=== PATIENT | female | born 1985 | race Caucasian/White ===

== ENCOUNTER 2016-10-11 00:48 | Emergency (ER) | payer MEDICAID ==
[2016-10-11] MEDS: PROMETHAZINE HCL 25 MG/ML VIAL IVP ONE (01:13)
[2016-10-11] MEDS: 0.9 % SODIUM CHLORIDE 1000ML 1,000 ML IV SCH (01:13)
--- NOTE | 2016-10-11 01:13 | Emergency Department Record ---
History of Present Illness - General Chief complaint: Nausea, Vomiting, Diarrhea Stated complaint: VOMITING Time Seen by Provider: 10/11/16 01:08 Source: Patient Mode of Arrival: Ambulatory Limitations: No limitations - History of Present Illness Initial comments: 31 yo female presents to ED with a CC of nausea, vomiting, and loose stools for the past 5 hours. Patient reports chills, denies fevers or abdominal pain symptoms. Patient denies recent ill contacts. 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 MD complaint: Nausea, Vomiting Onset/Timin -: Hour(s) Description of Vomiting: Other Description of Diarrhea: Other Associated Abdominal Pain: No Radiation: None Severity: Mild Quality: Aching Consistency: Constant Improves with: None Worsens with: None Context: Other Associated Symptoms: Malaise, Nausea/vomiting - Related Data Home Medications Medication Instructions Recorded Confirmed Last Taken Alprazolam [Alprazolam] 0.5 mg PO ASDIR 10/11/16 10/11/16 Unknown Cholecalciferol (Vitamin D3) 2,000 unit PO DAILY 10/11/16 10/11/16 Unknown [Vitamin D3] Ferrous Sulfate [Iron] 325 mg PO DAILY 10/11/16 10/11/16 Unknown Ibuprofen [Motrin] 800 mg PO Q8H 10/11/16 10/11/16 Unknown Previous Rx's Medication Instructions Recorded Ondansetron [Zofran Odt] 4 mg PO 10 PRN #10 tab.rapdis 10/11/16 Allergies Allergy/AdvReac Type Severity Reaction Status Date / Time vancomycin AdvReac HIVES Unverified 08/28/16 18:07 Travel Screening - Travel/Exposure Within Last 30 Days Have you traveled within the last 30 days?: No - Travel/Exposure Within Last Year Have you traveled outside the [place] in the last year?: No - Additonal Travel Details Have you been exposed to anyone with a communicable illness?: No - Travel Symptoms Symptom Screening: None Review of Systems Constitutional: Reports: Chills. Denies: Fever, Malaise Eyes: Denies: Eye discharge, Eye pain ENT: Denies: Congestion, Ear pain, Epistaxis Respiratory: Denies: Cough, Dyspnea Cardiovascular: Denies: Chest pain, Dyspnea on exertion Endocrine: Denies: Fatigue, Heat or cold intolerance Gastrointestinal: Reports: Diarrhea, Nausea, Vomiting. Denies: Abdominal pain Genitourinary: Denies: Dysuria, Frequency, Hematuria, Incontinence Musculoskeletal: Denies: Arthralgia, Back pain, Gout, Joint swelling Skin: Denies: Bruising, Change in color Neurological: Denies: Abnormal gait, Confusion, Headache, Tingling Psychiatric: Denies: Anxiety Hematological/Lymphatic: Denies: Anemia, Blood Clots Past Medical History - SOCIAL HISTORY Smoking Status: Current every day smoker Alcohol Use: None Drug Use: None - RESPIRATORY Hx Respiratory Disorders: Yes Hx Asthma: Yes - CARDIOVASCULAR Hx Cardio Disorders: No - NEURO Hx Neuro Disorders: Yes Hx Brain Tumor: Yes Comment:: brain tumor - GI Hx GI Disorders: Yes Hx Irritable Bowel: Yes Hx Liver Disease: Yes (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 (lesions)) - Hx Genitourinary Disorders: No - ENDOCRINE Hx Endocrine Disorders: Yes Hx Thyroid Disease: Yes Comment:: Graves Disease - MUSCULOSKELETAL Hx Arthritis: Yes (rheumatoid) - PSYCH Hx Psych Problems: Yes Hx Anxiety: Yes - HEMATOLOGY/ONCOLOGY Hx Hematology/Oncology Disorders: No Family Medical History Any Significant Family History?: Yes Hx Cancer: Mother, Grandparents Hx Diabetes: Father Hx HTN: Mother Hx Liver Disease: Father, Mother *Liver Comment: Hep C Physical Exam - General General Appearance: Alert, Oriented x3, Cooperative, Anxious Limitations: No limitations - Head Head exam: Atraumatic, Normocephalic, Normal inspection Head exam detail: negative: Abrasion, Contusion, Gonzalez's sign, General tenderness, Hematoma, Laceration - Eye Eye exam: Normal appearance. negative: Conjunctival injection, Periorbital swelling, Periorbital tenderness, Scleral icterus - ENT Ear exam: negative: Auricular hematoma, Auricular trauma Nasal Exam: negative: Active bleeding, Discharge, Dried blood, Foreign body Mouth exam: negative: Drooling, Laceration, Muffled voice, Tongue elevation - Neck Neck exam: Normal inspection. negative: Meningismus, Tenderness - Respiratory Respiratory exam: Normal lung sounds bilaterally. negative: Rhonchi, Stridor, Wheezes - Cardiovascular Cardiovascular Exam: Regular rate, Normal rhythm, Normal heart sounds - GI/Abdominal GI/Abdominal exam: Soft. negative: Rebound, Rigid, Tenderness - Rectal Rectal exam: Deferred - exam: Deferred - Extremities Extremities exam: Normal inspection. negative: Pedal edema, Tenderness - Back Back exam: Denies: CVA tenderness (R), CVA tenderness (L) - Neurological Neurological exam: Alert, Normal gait, Oriented X3 - Psychiatric Psychiatric exam: Anxious - Skin Skin exam: Normal color. negative: Abrasion Type of lesion: negative: abrasion Course Vital Signs 10/11/16 00:59 Temperature 99.2 F Pulse Rate 113 H Respiratory 28 H Rate Blood Pressure 126/83 Pulse Ox 98 - Reevaluation(s) Reevaluation #1: 10/11/16 01:40 Labs reviewed, WBC 10.0, 86% Neutrophils, 6% Bands. Labs are otherwise grossly unremarkable for an acute process. Findings appear c/w acute phase reactant process. Reevaluation #2: 10/11/16 02:14 Patient reassessed and reports that she is feeling better. UA pending. Will continue to observe. Reevaluation #3: 10/11/16 02:40 UA has resulted and appears negative for infection. Patient reports that she has Zofran at home, and appears stable for discharge at this time. Medical Decision Making - Lab Data Result diagrams: 10/11/16 01:21 10/11/16 01:20 Disposition Disposition: Discharge Clinical Impression: Nausea & vomiting Qualifiers: Vomiting type: unspecified Vomiting Intractability: non-intractable Qualified Code(s): R11.2 - Nausea with vomiting, unspecified Disposition: Home, Self-Care Condition: (2) Stable Instructions: Acute Nausea and Vomiting (ED) Additional Instructions: Return to ED if your symptoms worsen or if you have any concerns. Follow-up with your family doctor in 1-3 days as directed. Zofran as previously prescribed. Prescriptions: Ondansetron [Zofran Odt] 4 mg PO 10 PRN #10 tab.rapdis PRN Reason: Nausea/Vomiting Forms: Patient Portal Access Time of Disposition: 02:46
[2016-10-11 01:21] LABS: BASO % 0.1 % (0-6); EOS % 0.3 % (0-6); HEMATOCRIT 38.5 % (35.0-47.0); HEMOGLOBIN 13.6 gm/dl (11.6-16.0); LYMPH % 5.9 % (16-45); MEAN CELL VOLUME 84.8 fl (81-97); MEAN CORPUSCULAR HGB CONC 35.3 g/dl (32-36); MEAN PLATELET VOLUME 10.8 fl (7.4-10.4); MONO % 3.4 % (0-9); PLATELET COUNT 255 K/uL (130-400); RED BLOOD COUNT 4.54 M/uL (3.80-5.40); RED CELL DISTRIBUTION WIDTH 12.8 % (11.5-14.5)
[2016-10-11 01:35] LABS: ALB/GLOB RATIO 1.9 (1.1-1.8); ALKALINE PHOSPHATASE 69 U/L (38-126); ALT/SGPT 41 U/L (9-52); AST/SGOT 27 U/L (14-36); CREATININE 0.7 mg/dL (0.52-1.04); EST GLOMERULAR FILTRATION RATE > 60 ml/min; GLUCOSE,RANDOM 136 mg/dL (70-110); LIPASE 100 U/L (23-300); TOTAL PROTEIN 7.7 gm/dL (6.3-8.2)
[2016-10-11 02:00] LABS: BLOOD UREA NITROGEN 14 mg/dL (7-17)
[2016-10-11 02:15] LABS: URINE APPEARANCE CLEAR; URINE BILIRUBIN NEGATIVE (NEGATIVE); URINE BLOOD NEGATIVE (NEGATIVE); URINE COLOR YELLOW; URINE GLUCOSE (UA) NEGATIVE (NEGATIVE); URINE KETONE NEGATIVE (NEGATIVE); URINE LEUKOCYTE ESTERASE NEGATIVE (NEGATIVE); URINE NITRITE NEGATIVE (NEGATIVE); URINE PROTEIN NEGATIVE (NEGATIVE); URINE UROBILINOGEN 0.2 E.U./dL (0.20 - 1.00)
[2016-10-11 02:17] LABS: HCG,QUALITATIVE URINE NEGATIVE (NEGATIVE)
[2016-10-11] MEDS: KETOROLAC 30 MG/ML VIAL IVP ONE (02:43)
[2016-10-11] MEDS: ONDANSETRON 4 MG ODT TABLET SL ONE (02:49)
== END 2016-10-11 03:01 | disposition home or self-care (01) ==
LOC: ER 00:48
DX: R11.2 Nausea with vomiting, unspecified (principal); R19.7 Diarrhea, unspecified
CPT/HCPCS: 80053; 81003; 81025; 83690; 85027; 96361; 96374; 99284; J2550; J7030

== ENCOUNTER 2018-07-05 13:46 | Emergency (ER) | payer MEDICAID | END 2018-07-05 13:48 | disposition left against medical advice (07) | LOC: ER 13:46 | DX: Z53.20 Procedure and treatment not carried out because of patient's decision for unspecified reasons (principal) ==

== ENCOUNTER 2019-01-02 01:04 | Emergency (ER) | payer MEDICAID ==
[2019-01-02] MEDS ORDERED: MAGNESIUM HYDROXIDE/AL HYDROX 30 ML, LIDOCAINE VISC 2% 15ML 15 ML PO ONE ×2 (01:09)
--- NOTE | 2019-01-02 01:15 | Emergency Department Record ---
History of Present Illness - General Chief Complaint: Abdominal Pain Stated Complaint: STOMACH PAIN Time Seen by Provider: 01/02/19 01:09 Source: Patient Mode of Arrival: Ambulatory Limitations: No limitations - History of Present Illness Initial Comments: 33 yo female presents to ED for evaluation of epigastric abdominal pain that radiates to her mid-back. Patient denies nausea/vomiting, reports that her pain symptoms did not resolve with Tums this evening. Patient denies health problems at her baseline, does report previous cholecystectomy, hysterectomy, and x 3. MD Complaint: Abdominal pain -: Hour(s) Location: Epigastric Radiation: Back Severity: Moderate Quality: Aching Consistency: Constant Improves With: Nothing Worsens With: Nothing Associated Symptoms: Denies other symptoms - Related Data Home Medications Medication Instructions Recorded Confirmed Last Taken Polyethylene Glycol 3350 [Miralax] 1 packet PO DAILY 01/02/19 01/02/19 01/01/19 Previous Rx's Medication Instructions Recorded Ondansetron [Zofran Odt] 4 mg PO 10 PRN #10 tab.rapdis 10/11/16 Allergies Allergy/AdvReac Type Severity Reaction Status Date / Time vancomycin AdvReac HIVES Verified 01/02/19 01:05 Review of Systems Constitutional: Denies: Chills, Fever, Malaise, Night sweats Eyes: Denies: Eye discharge, Eye pain ENT: Denies: Congestion, Ear pain, Epistaxis Respiratory: Denies: Cough, Dyspnea Cardiovascular: Denies: Chest pain, Dyspnea on exertion Endocrine: Denies: Fatigue, Heat or cold intolerance Gastrointestinal: Reports: Abdominal pain. Denies: Constipation, Nausea, Vomiting Genitourinary: Denies: Incontinence, Retention Musculoskeletal: Reports: Back pain. Denies: Arthralgia Skin: Denies: Bruising, Change in color Neurological: Denies: Abnormal gait, Confusion, Headache, Seizure Psychiatric: Denies: Anxiety Hematological/Lymphatic: Denies: Anemia, Blood Clots Past Medical History - SOCIAL HISTORY Smoking Status: Current every day smoker Drug Use: None - RESPIRATORY Hx Respiratory Disorders: Yes Hx Asthma: Yes - CARDIOVASCULAR Hx Cardio Disorders: No - NEURO Hx Neuro Disorders: Yes Hx Brain Tumor: Yes Comment:: brain tumor - GI Hx GI Disorders: Yes Hx Irritable Bowel: Yes Hx Liver Disease: Yes (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 (lesions)) - Hx Genitourinary Disorders: No - ENDOCRINE Hx Endocrine Disorders: Yes Hx Thyroid Disease: Yes Comment:: Graves Disease - MUSCULOSKELETAL Hx Arthritis: Yes (rheumatoid) - PSYCH Hx Psych Problems: Yes Hx Anxiety: Yes - HEMATOLOGY/ONCOLOGY Hx Hematology/Oncology Disorders: No Family Medical History Hx Cancer: Mother, Grandparents Hx Diabetes: Father Hx HTN: Mother Hx Liver Disease: Father, Mother *Liver Comment: Hep C Physical Exam - General General Appearance: Alert, Oriented x3, Cooperative, No acute distress, Other ( Patient is well appearing on examination, no distress noted) Limitations: No limitations - Head Head exam: Atraumatic, Normocephalic, Normal inspection Head exam detail: negative: Abrasion, Contusion, Gonzalez's sign, General tenderness, Hematoma, Laceration - Eye Eye exam: Normal appearance. negative: Conjunctival injection, Periorbital swelling, Periorbital tenderness, Scleral icterus - ENT Ear exam: negative: Auricular hematoma, Auricular trauma Nasal Exam: negative: Active bleeding, Discharge, Dried blood, Foreign body Mouth exam: negative: Drooling, Laceration, Muffled voice, Tongue elevation - Neck Neck exam: Normal inspection. negative: Meningismus, Tenderness - Respiratory Respiratory exam: Normal lung sounds bilaterally. negative: Rales, Respiratory distress, Rhonchi, Stridor - Cardiovascular Cardiovascular Exam: Regular rate, Normal rhythm, Normal heart sounds - GI/Abdominal GI/Abdominal exam: Soft, Tenderness (Mild TTP to the epigastric region on examination, no rebound, guarding, or peritoneal signs on examination.). negative: Rebound, Rigid - Rectal Rectal exam: Deferred - exam: Deferred - Extremities Extremities exam: Normal inspection. negative: Pedal edema, Tenderness - Back Back exam: Denies: CVA tenderness (R), CVA tenderness (L) - Neurological Neurological exam: Alert, Normal gait, Oriented X3 - Psychiatric Psychiatric exam: Normal affect, Normal mood - Skin Skin exam: Normal color. negative: Abrasion Type of lesion: negative: abrasion Course - Reevaluation(s) Reevaluation #1: 01/02/19 01:44 Laboratory studies were reviewed and are grossly unremarkable for an acute process. Patient reports that she is feeling better, repeat abdominal examination is benign, and the patient is resting comfortably on her mobile phone. Patient appears stable for discharge at this time. Medical Decision Making - Lab Data Result diagrams: 01/02/19 01:10 01/02/19 01:10 Disposition Disposition: Discharge Clinical Impression: Epigastric abdominal pain Disposition: Home, Self-Care Condition: (2) Stable Instructions: Abdominal Pain (ED) Additional Instructions: Return to ED if your symptoms worsen or if you have any concerns. Follow-up with your family doctor in 3-5 days as directed. Forms: Patient Portal Access Time of Disposition: 01:45 Quality - Quality Measures Quality Measures: N/A - Blood Pressure Screening Does Patient Have Any of the Following: No Blood Pressure Classification: Hypertensive Reading Systolic Measurement: 128 Diastolic Measurement: 99 Screening for High Blood Pressure: < First Hypertensive BP, F/U Documented > [ G8950] First Hypertensive Follow-up Interventions: Referral to alternative/primary care provider.
[2019-01-02 01:22] LABS: BASO % 0.2 % (0-6); EOS % 1.3 % (0-6); HEMATOCRIT 35.4 % (35.0-47.0); HEMOGLOBIN 11.4 gm/dl (11.6-16.0); LYMPH % 24.5 % (16-45); MEAN CELL VOLUME 79.4 fl (81-97); MEAN CORPUSCULAR HGB CONC 32.2 g/dl (32-36); MEAN PLATELET VOLUME 9.7 fl (7.4-10.4); PLATELET COUNT 377 K/uL (130-400); RED BLOOD COUNT 4.46 M/uL (3.80-5.40); RED CELL DISTRIBUTION WIDTH 16.2 % (11.5-14.5); WHITE BLOOD COUNT W/O DIFF 8.6 K/uL (4.2-12.2)
[2019-01-02 01:24] LABS: MEAN CORPUSCULAR HEMOGLOBIN 25.5 pg (27-33)
[2019-01-02 01:31] LABS: BLOOD UREA NITROGEN 13 mg/dL (6-20); CREATININE 0.7 mg/dL (0.5-0.9); EST GLOMERULAR FILTRATION RATE > 60 mL/min
[2019-01-02 01:32] LABS: LIPASE 28 U/L (13-60); TOTAL PROTEIN 7.5 g/dL (6.6-8.7)
[2019-01-02 01:34] LABS: GLUCOSE,RANDOM 111 mg/dL (74-109)
[2019-01-02 01:36] LABS: ALT/SGPT 19 U/L (<33); URINE APPEARANCE CLEAR; URINE BILIRUBIN NEGATIVE (NEGATIVE); URINE BLOOD TRACE-I (NEGATIVE); URINE COLOR YELLOW; URINE GLUCOSE (UA) NEGATIVE (NEGATIVE); URINE KETONE NEGATIVE (NEGATIVE); URINE LEUKOCYTE ESTERASE TRACE (NEGATIVE); URINE NITRITE NEGATIVE (NEGATIVE); URINE PROTEIN NEGATIVE (NEGATIVE); URINE UROBILINOGEN 0.2 E.U./dL (0.20 - 1.00)
[2019-01-02 01:37] LABS: ALB/GLOB RATIO 1.3 (1.1-1.8); ALBUMIN 4.3 g/dL (4.0-5.0); ALKALINE PHOSPHATASE 67 U/L (35-104); AST/SGOT 15 U/L (10.0-35.0)
[2019-01-02 01:42] LABS: URINE EPITHELIAL CELLS 0 - 2 (FEW); URINE RBC 0 - 2 (NONE SEEN); URINE WBC 0 - 2 (0-2/hpf)
[2019-01-02 01:43] LABS: URINE BACTERIA FEW
== END 2019-01-02 02:00 | disposition home or self-care (01) ==
LOC: ER 01:04
DX: R10.13 Epigastric pain (principal); F17.210 Nicotine dependence, cigarettes, uncomplicated
CPT/HCPCS: 80053; 81001; 83690; 85025; 99283; 99284

== ENCOUNTER 2019-04-22 19:23 | Emergency (ER) | payer MEDICAID ==
--- NOTE | 2019-04-22 19:47 | Emergency Department Record ---
History of Present Illness - General Chief Complaint: Neck Injury/Pain Stated Complaint: NECK PAIN Time Seen by Provider: 04/22/19 19:24 Source: Patient Mode of Arrival: Ambulatory Limitations: No limitations - History of Present Illness Initial Comments: 33 yo female with a past medical history significant for psoriatic arthritis and fibromyalgia presents to ED for evaluation of right-sided neck pain symptoms for the past 2 weeks, reports pain worsened following chiropractic treatment yesterday. Patient did see her pecan picker 2 weeks ago for her symptoms, was prescribed Leflunomide but has not taken any for her pain symptoms due to a gastric emptying test performed yesterday. Patient has also been taking Aleve for her pain symptoms. Patient denies numbness, tingling, or upper extremity weakness symptoms. MD Complaint: Neck pain Onset/Timin -: Week(s) Place: Home Severity: Moderate Quality: Aching Consistency: Constant Improves With: None Worsens With: None Context: Direct blow Associated Symptoms: None Treatments Prior to Arrival: None - Related Data Previous Rx's Medication Instructions Recorded Ondansetron [Zofran Odt] 4 mg PO 10 PRN #10 tab.rapdis 10/11/16 Prednisone [Prednisone 20Mg] 20 mg PO TID #12 tab 04/22/19 Allergies Allergy/AdvReac Type Severity Reaction Status Date / Time vancomycin AdvReac HIVES Unverified 02/02/19 10:49 Review of Systems Constitutional: Denies: Chills, Fever, Malaise, Night sweats Eyes: Denies: Eye discharge, Eye pain ENT: Denies: Congestion, Ear pain, Epistaxis Respiratory: Denies: Cough, Dyspnea Cardiovascular: Denies: Chest pain, Dyspnea on exertion Endocrine: Denies: Fatigue, Heat or cold intolerance Gastrointestinal: Denies: Abdominal pain, Nausea, Vomiting Genitourinary: Denies: Incontinence, Retention Musculoskeletal: Reports: Neck pain. Denies: Arthralgia, Back pain, Gout, Joint swelling Skin: Denies: Bruising, Change in color Neurological: Denies: Abnormal gait, Confusion, Headache, Seizure Psychiatric: Denies: Anxiety Hematological/Lymphatic: Denies: Anemia, Blood Clots Past Medical History - SOCIAL HISTORY Smoking Status: Current every day smoker - RESPIRATORY Hx Respiratory Disorders: Yes Hx Asthma: Yes - CARDIOVASCULAR Hx Cardio Disorders: No - NEURO Hx Neuro Disorders: Yes Hx Brain Tumor: Yes - GI Hx GI Disorders: Yes Hx Irritable Bowel: Yes Hx Liver Disease: Yes (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 (lesions)) - Hx Genitourinary Disorders: No - ENDOCRINE Hx Endocrine Disorders: Yes Hx Thyroid Disease: Yes Comment:: Graves Disease - MUSCULOSKELETAL Hx Arthritis: Yes (rheumatoid) - PSYCH Hx Psych Problems: Yes Hx Anxiety: Yes - HEMATOLOGY/ONCOLOGY Hx Hematology/Oncology Disorders: No Family Medical History Any Significant Family History?: Yes Hx Cancer: Mother, Grandparents Hx Diabetes: Father Hx HTN: Mother Hx Liver Disease: Father, Mother *Liver Comment: Hep C Physical Exam - General General Appearance: Alert, Oriented x3, Cooperative, Mild distress Limitations: No limitations - Head Head exam: Atraumatic, Normocephalic, Normal inspection Head exam detail: negative: Abrasion, Contusion, Gonzalez's sign, General tenderne ss, Hematoma, Laceration - Eye Eye exam: Normal appearance. negative: Conjunctival injection, Periorbital swelling, Periorbital tenderness, Scleral icterus - ENT Ear exam: negative: Auricular hematoma, Auricular trauma Nasal Exam: negative: Active bleeding, Discharge, Dried blood, Foreign body Mouth exam: negative: Drooling, Laceration, Muffled voice, Tongue elevation - Neck Neck exam: Tenderness (TTP along the right para-cervical muscles on examination, no evidence for midline tenderness or infection on examination.). negative: Meningismus - Respiratory Respiratory exam: Normal lung sounds bilaterally. negative: Rales, Respiratory distress, Rhonchi, Stridor - Cardiovascular Cardiovascular Exam: Regular rate, Normal rhythm, Normal heart sounds - GI/Abdominal GI/Abdominal exam: Soft. negative: Rebound, Rigid, Tenderness - Rectal Rectal exam: Deferred - exam: Deferred - Extremities Extremities exam: Normal inspection. negative: Pedal edema, Tenderness - Back Back exam: Denies: CVA tenderness (R), CVA tenderness (L) - Neurological Neurological exam: Alert, Normal gait, Oriented X3 - Psychiatric Psychiatric exam: Normal affect, Normal mood - Skin Skin exam: Normal color. negative: Abrasion Type of lesion: negative: abrasion Course Vital Signs 04/22/19 19:31 Temperature 98.1 F Pulse Rate [ 72 Pulse Ox Probe] Respiratory 20 Rate Blood Pressure 138/92 [Left Arm] Pulse Ox 98 - Reevaluation(s) Reevaluation #1: 04/22/19 20:04 History and examination appear c/w myofascial strain. Will treat with Depo-medrol per patient request for her inflammatory sympotms. Will continue prednisone for 5 days as an outpatient with instructions to follow-up with her PCP or pecan picker as directed. Disposition Disposition: Discharge Clinical Impression: Neck muscle strain Qualifiers: Encounter type: initial encounter Qualified Code(s): S16.1XXA - Strain of muscle, fascia and tendon at neck level, initial encounter Disposition: Home, Self-Care Condition: (2) Stable Instructions: Cervical Sprain (ED) Additional Instructions: Return to ED if your symptoms worsen or if you have any concerns. Prednisone as directed. Follow-up with your family doctor in 3-5 days as directed. Prescriptions: Prednisone [Prednisone 20Mg] 20 mg PO TID #12 tab Forms: Patient Portal Access Time of Disposition: 19:47 Quality - Quality Measures Quality Measures: N/A - Blood Pressure Screening Does Patient Have Any of the Following: No Blood Pressure Classification: Hypertensive Reading Systolic Measurement: 138 Diastolic Measurement: 92 Screening for High Blood Pressure: < First Hypertensive BP, F/U Documented > [G8950] First Hypertensive Follow-up Interventions: Referral to alternative/primary care provider.
[2019-04-22] MEDS: METHYLPREDNISOLONE PF 125MG/VIAL IM ONE ×2 (19:53→20:06)
[2019-04-22] MEDS ORDERED: METHYLPREDNISOLONE 80MG/VIAL IM ONE (19:58)
== END 2019-04-22 20:18 | disposition home or self-care (01) ==
LOC: ER 19:23
DX: S16.1XXA Strain of muscle, fascia and tendon at neck level, initial encounter (principal); X58.XXXA Exposure to other specified factors, initial encounter; F17.210 Nicotine dependence, cigarettes, uncomplicated; Y92.009 Unspecified place in unspecified non-institutional (private) residence as the place of occurrence of the external cause
CPT/HCPCS: 96372; 99283; J1040; J2930

== ENCOUNTER 2019-10-05 21:21 | Emergency (ER) | payer MEDICAID ==
--- NOTE | 2019-10-05 22:38 | Emergency Department Record ---
History of Present Illness - General Chief complaint: Flu Like Symptoms Stated complaint: POS FLU B NO BETTER 10 DAYS Time Seen by Provider: 10/05/19 22:33 Source: Patient Mode of Arrival: Ambulatory Limitations: No limitations - History of Present Illness Initial comments: 34 yo female presents to ED for evaluation of "flu-like symptoms" for 10 days, w as diagnosed with influenza B 3 days ago. Patient has bee taking Tylenol for her symptoms, reports that she is concerned that she is not getting noticeably better after 10 days of symptoms. Patient reports sore throat, non-productive cough, body aches, and use of her inhaler for her asthma symptoms. MD Complaint: Generalized weakness Onset/Timin -: Days(s) Location: Generalized Severity: Moderate Quality: Aching Consistency: Constant Improves with: None Worsens with: None Associated Symptoms: Headaches, Myalgias - Gael Coma Scale Eye Response: (4) Open spontaneously Motor Response: (6) Obeys commands Verbal Response: (5) Oriented [place] Total: 15 - Related Data Previous Rx's Medication Instructions Recorded Ondansetron [Zofran Odt] 4 mg PO 10 PRN #10 tab.rapdis 10/11/16 Allergies Allergy/AdvReac Type Severity Reaction Status Date / Time vancomycin AdvReac HIVES Unverified 10/02/19 12:41 Travel Screening - Travel/Exposure Within Last 30 Days Have you traveled within the last 30 days?: No - Travel Symptoms Symptom Screening: None Review of Systems Constitutional: Denies: Chills, Fever, Malaise, Night sweats Eyes: Denies: Eye discharge, Eye pain ENT: Reports: Congestion. Denies: Ear pain, Epistaxis Respiratory: Reports: Cough Cardiovascular: Denies: Chest pain, Dyspnea on exertion Endocrine: Denies: Fatigue, Heat or cold intolerance Gastrointestinal: Denies: Abdominal pain, Nausea, Vomiting Genitourinary: Denies: Incontinence, Retention Musculoskeletal: Reports: Myalgia. Denies: Back pain, Gout Skin: Denies: Bruising, Change in color Neurological: Reports: Headache. Denies: Abnormal gait, Confusion, Seizure Psychiatric: Denies: Anxiety Hematological/Lymphatic: Denies: Anemia, Blood Clots Past Medical History - SOCIAL HISTORY Smoking Status: Current every day smoker Alcohol Use: None Drug Use: None - RESPIRATORY Hx Respiratory Disorders: Yes Hx Asthma: Yes - CARDIOVASCULAR Hx Cardio Disorders: No - NEURO Hx Neuro Disorders: Yes Hx Brain Tumor: Yes - GI Hx GI Disorders: Yes Hx Irritable Bowel: Yes Hx Liver Disease: Yes (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 (lesions)) - Hx Genitourinary Disorders: No - ENDOCRINE Hx Endocrine Disorders: Yes Hx Thyroid Disease: Yes Comment:: Graves Disease - MUSCULOSKELETAL Hx Arthritis: Yes (rheumatoid) - PSYCH Hx Psych Problems: Yes Hx Anxiety: Yes - HEMATOLOGY/ONCOLOGY Hx Hematology/Oncology Disorders: No Family Medical History Any Significant Family History?: Yes Hx Cancer: Mother, Grandparents Hx Diabetes: Father Hx HTN: Mother Hx Liver Disease: Father, Mother *Liver Comment: Hep C Physical Exam - General General Appearance: Alert, Oriented x3, Cooperative, Mild distress Limitations: No limitations - Head Head exam: Atraumatic, Normocephalic, Normal inspection Head exam detail: negative: Abrasion, Contusion, Gonzalez's sign, General tenderness, Hematoma, Laceration - Eye Eye exam: Normal appearance. negative: Conjunctival injection, Periorbital swelling, Periorbital tenderness, Scleral icterus - ENT ENT exam: Normal orophraynx Ear exam: negative: Auricular hematoma, Auricular trauma Nasal Exam: negative: Active bleeding, Discharge, Dried blood, Foreign body Mouth exam: negative: Drooling, Laceration, Muffled voice, Tongue elevation - Neck Neck exam: Normal inspection. negative: Meningismus, Tenderness - Respiratory Respiratory exam: Normal lung sounds bilaterally. negative: Rales, Respiratory distress, Rhonchi, Stridor - Cardiovascular Cardiovascular Exam: Regular rate, Normal rhythm, Normal heart sounds - GI/Abdominal GI/Abdominal exam: Soft. negative: Rebound, Rigid, Tenderness - Rectal Rectal exam: Deferred - exam: Deferred - Extremities Extremities exam: Normal inspection. negative: Pedal edema, Tenderness - Back Back exam: Denies: CVA tenderness (R), CVA tenderness (L) - Neurological Neurological exam: Alert, Normal gait, Oriented X3 - Psychiatric Psychiatric exam: Normal affect, Normal mood - Skin Skin exam: Normal color. negative: Abrasion Type of lesion: negative: abrasion Course Vital Signs 10/05/19 10/05/19 21:46 22:23 Temperature 98.6 F Pulse Rate [ 89 92 H Pulse Ox Probe] Respiratory 20 18 Rate Blood Pressure 142/103 132/98 [Right Arm] Pulse Ox 98 97 - Reevaluation(s) Reevaluation #1: 10/05/19 22:41 Patient was seen and examined. No clinical evidence for bacterial infection is present on examination. Lungs are CTA, pharynx appears clear on examination. History and examination appear c/w viral syndrome. Patient was encouraged to continue Tylenol and Ibuprofen as directed for her sympotms. Patient appears stable for discharge at this time. Disposition Disposition: Discharge Clinical Impression: Influenza B Disposition: Home, Self-Care Condition: (2) Stable Instructions: Influenza (ED) Additional Instructions: Return to ED if your symptoms worsen or if you have any concerns. Tylenol/Ibuprofen as directed. Follow-up with your family doctor in 3-5 days as directed. Forms: Patient Portal Access Time of Disposition: 22:38 Quality - Quality Measures Quality Measures: N/A - Blood Pressure Screening Does Patient Have Any of the Following: No Blood Pressure Classification: Hypertensive Reading Systolic Measurement: 132 Diastolic Measurement: 98 Screening for High Blood Pressure: < First Hypertensive BP, F/U Documented > [G8950] First Hypertensive Follow-up Interventions: Referral to alternative/primary care provider.
== END 2019-10-05 22:44 | disposition home or self-care (01) ==
LOC: ER 21:21
DX: J10.1 Influenza due to other identified influenza virus with other respiratory manifestations (principal); F17.210 Nicotine dependence, cigarettes, uncomplicated
CPT/HCPCS: 99282

== ENCOUNTER 2019-10-07 20:20 | Emergency (ER) | payer MEDICAID ==
--- NOTE | 2019-10-07 20:26 | Emergency Department Record ---
History of Present Illness - General Stated Complaint: COUGH Time Seen by Provider: 10/07/19 20:21 Source: Patient Mode of Arrival: Ambulatory Limitations: No limitations - History of Present Illness Initial Comments: 34 yo female returns to the ED for evaluation following diagnosis of influenza B 5 days ago. Patient reports non-productive cough symptoms that are not improving, continues to report fevers and body aches despite taking Ibuprofen. Patient denies health problems at her baseline. MD Complaint: Cough, Fever Onset/Timin -: Days(s) Severity: Moderate Quality: Aching Consistency: Constant Worsens With: Other (Coughing) Associated Symptoms: Cough - Related Data Previous Rx's Medication Instructions Recorded Ondansetron [Zofran Odt] 4 mg PO 10 PRN #10 tab.rapdis 10/11/16 Allergies Allergy/AdvReac Type Severity Reaction Status Date / Time vancomycin AdvReac HIVES Verified 10/07/19 20:29 Review of Systems Constitutional: Reports: Chills, Fever, Malaise, Weakness Eyes: Denies: Eye discharge, Eye pain ENT: Reports: Congestion. Denies: Ear pain, Epistaxis Respiratory: Reports: Cough. Denies: Dyspnea Cardiovascular: Denies: Chest pain, Dyspnea on exertion Endocrine: Reports: Fatigue. Denies: Heat or cold intolerance Gastrointestinal: Denies: Abdominal pain, Nausea, Vomiting Genitourinary: Denies: Incontinence, Retention Musculoskeletal: Reports: Myalgia. 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)) - Hx Genitourinary Disorders: No - ENDOCRINE Hx Endocrine Disorders: Yes Hx Thyroid Disease: Yes Comment:: Graves Disease - MUSCULOSKELETAL Hx Arthritis: Yes (rheumatoid) - PSYCH Hx Psych Problems: Yes Hx Anxiety: Yes - HEMATOLOGY/ONCOLOGY Hx Hematology/Oncology Disorders: No Family Medical History Hx Cancer: Mother, Grandparents Hx Diabetes: Father Hx HTN: Mother Hx Liver Disease: Father, Mother *Liver Comment: Hep C Physical Exam - General General Appearance: Alert, Oriented x3, Cooperative, Mild distress Limitations: No limitations - Head Head exam: Atraumatic, Normocephalic, Normal inspection Head exam detail: negative: Abrasion, Contusion, Gonzalez's sign, General tenderness, Hematoma, Laceration - Eye Eye exam: Normal appearance. negative: Conjunctival injection, Periorbital swelling, Periorbital tenderness, Scleral icterus - ENT Ear exam: negative: Auricular hematoma, Auricular trauma Nasal Exam: negative: Active bleeding, Discharge, Dried blood, Foreign body Mouth exam: negative: Drooling, Laceration, Muffled voice, Tongue elevation Throat exam: negative: Tonsillar erythema, Tonsillomegaly, Tonsillar exudate, R peritonsillar mass, L peritonsillar mass - Neck Neck exam: Normal inspection. negative: Meningismus, Tenderness - Respiratory Respiratory exam: Normal lung sounds bilaterally. negative: Rales, Respiratory distress, Rhonchi, Stridor - Cardiovascular Cardiovascular Exam: Normal rhythm, Normal heart sounds, Tachycardia - GI/Abdominal GI/Abdominal exam: Soft. negative: Rebound, Rigid, Tenderness - Rectal Rectal exam: Deferred - exam: Deferred - Extremities Extremities exam: Normal inspection. negative: Pedal edema, Tenderness - Back Back exam: Denies: CVA tenderness (R), CVA tenderness (L) - Neurological Neurological exam: Alert, Normal gait, Oriented X3 - Psychiatric Psychiatric exam: Normal affect, Normal mood - Skin Skin exam: Normal color. negative: Abrasion Type of lesion: negative: abrasion Course - Reevaluation(s) Reevaluation #1: 10/07/19 21:05 Laboratory studies were reviewed and appear grossly unremarkable for an acute process. Patient is going for CXR at this time. 10/07/19 21:30 CXR: No acute process Patient was updated on all results, symptoms are c/w influenza B. Patient appears stable for discharge continuing Tamiflu as previously prescribed. Medical Decision Making - Lab Data Result diagrams: 10/07/19 20:30 10/07/19 20:30 Disposition Disposition: Discharge Clinical Impression: Influenza B Disposition: Home, Self-Care Condition: (2) Stable Instructions: Influenza (ED) Additional Instructions: Return to ED if your symptoms worsen or if you have any concerns. Continue Tamiflu as directed. Follow-up with your family doctor in 3-5 days as directed. Time of Disposition: 21:33 Quality - Quality Measures Quality Measures: N/A - Blood Pressure Screening Does Patient Have Any of the Following: No Blood Pressure Classification: Hypertensive Reading Systolic Measurement: 114 Diastolic Measurement: 92 Screening for High Blood Pressure: < First Hypertensive BP, F/U Documented > [G8950] First Hypertensive Follow-up Interventions: Referral to alternative/primary care provider.
[2019-10-07] MEDS ORDERED: ACETAMINOPHEN 500 MG TABLET PO ONE (20:28)
[2019-10-07] MEDS ORDERED: KETOROLAC 30 MG/ML VIAL IVP ONE (20:28)
[2019-10-07] MEDS ORDERED: 0.9 % SODIUM CHLORIDE 1000ML 1,000 ML IV SCH (20:30)
[2019-10-07 20:38] LABS: ABSOLUTE NEUTROPHIL COUNT 2.53; BASO % 0.2 % (0-6); EOS % 0.7 % (0-6); GRAN % 60.3 % (47-80); HEMATOCRIT 38.7 % (35.0-47.0); HEMOGLOBIN 12.9 gm/dl (11.6-16.0); LYMPH % 27.1 % (16-45); MEAN CELL VOLUME 86.2 fl (81-97); MEAN CORPUSCULAR HEMOGLOBIN 28.7 pg (27-33); MEAN CORPUSCULAR HGB CONC 33.3 g/dl (32-36); MEAN PLATELET VOLUME 9.5 fl (7.4-10.4); MONO % 11.7 % (0-9); PLATELET COUNT 216 K/uL (130-400); RED BLOOD COUNT 4.49 M/uL (3.80-5.40); RED CELL DISTRIBUTION WIDTH 15.1 % (11.5-14.5); WHITE BLOOD COUNT W/O DIFF 4.2 K/uL (4.2-12.2)
[2019-10-07 20:53] LABS: BLOOD UREA NITROGEN 12 mg/dL (6-20); CREATININE 0.8 mg/dL (0.5-0.9); EST GLOMERULAR FILTRATION RATE > 60 mL/min
[2019-10-07 20:54] LABS: TOTAL PROTEIN 7.3 g/dL (6.6-8.7)
[2019-10-07 20:56] LABS: GLUCOSE,RANDOM 102 mg/dL (74-109)
[2019-10-07 20:59] LABS: ALB/GLOB RATIO 1.2 (1.1-1.8); ALKALINE PHOSPHATASE 65 U/L (35-104); ALT/SGPT 49 U/L (<33); AST/SGOT 38 U/L (10.0-35.0)
--- NOTE | 2019-10-07 21:29 | RADIOLOGY REPORT ---
EXAMINATION: Two View Chest Radiographs EXAM DATE: 10/07/2019 9:15 PM TECHNIQUE: Frontal and lateral views INDICATION: cough COMPARISON: None ENCOUNTER: Not applicable FINDINGS: The heart, mediastinum, and pulmonary vasculature are normal. No lung consolidation or pleural effu sions are present. IMPRESSION: Normal chest. Dictated by: Glendy Bustillos MD on 10/07/2019 9:26 PM. .
== END 2019-10-07 21:43 | disposition home or self-care (01) ==
LOC: ER 20:20
DX: J10.1 Influenza due to other identified influenza virus with other respiratory manifestations (principal); F17.210 Nicotine dependence, cigarettes, uncomplicated
CPT/HCPCS: 71046; 80053; 85025; 96374; 99284; J7030